=== PATIENT | female | born 1990 | race Caucasian/White ===

== ENCOUNTER 2016-04-07 12:27 | Inpatient (IN) | payer OTHER ==
[~2016-04-07] VITALS: Ht 162.6 cm; Wt 103.0 kg
[2016-04-07] MEDS ORDERED: PRENATAL VITAMI1 TA2 PO (13:31)
[2016-04-07] MEDS ORDERED: OXYTOCIN 20 UNITS/LR PREMIX 1,000 ML IV SCH (13:33)
[2016-04-07] MEDS ORDERED: NOVOLIN N100 U/ML SUBQ (13:33)
[2016-04-07] MEDS ORDERED: NALBUPHINE 10 MG/ML AMP IVP PRN (13:35)
[2016-04-07] MEDS ORDERED: PROMETHAZINE 25 MG/ML VIAL IVP PRN (13:35)
[2016-04-07] MEDS ORDERED: CARBOPROST 250 MCG/ML AMP IM PRN (13:35)
[2016-04-07] MEDS ORDERED: METHYLERGONOVINE 0.2 MG/ML AMP IM SCH (13:35)
[2016-04-07] MEDS ORDERED: CLINDAMYCIN 900 MG/6 ML VIAL IV ONE ×2 (13:56→21:55)
[2016-04-07] MEDS ORDERED: CLINDAMYCIN 900 MG in DEXTROSE 5% 100 ML IV SCH ×2 (13:56→21:00)
[2016-04-07] MEDS ORDERED: OXYTOCIN 10 UNITS/ML VIAL IM SCH (14:00)
[2016-04-07] MEDS: LACTATED RINGERS 1,000 ML IV SCH (14:25)
[2016-04-07] MEDS ORDERED: MISOPROSTOL 25 MCG TAB VG SCH (15:20)
[2016-04-07] MEDS ORDERED: MISOPROSTOL 25 MCG TAB ONE ×2 (18:04→22:41)
[2016-04-07] MEDS ORDERED: INSULIN HUMAN NPH 100 UNITS/ML VIAL SUBQ SCH (21:30)
[2016-04-08] MEDS ORDERED: OXYTOCIN 20 UNITS/LR PREMIX 1,000 ML IV ONE (01:09)
[2016-04-08] MEDS ORDERED: NALBUPHINE HYDROCHLORIDE 10 MG/ML VIAL ONE ×3 (02:01→09:31)
[2016-04-08] MEDS ORDERED: PROMETHAZINE 25 MG/ML VIAL ONE ×3 (02:01→09:31)
[2016-04-08] MEDS ORDERED: CLINDAMYCIN 900 MG/6 ML VIAL IV ONE ×2 (05:30→13:57)
[2016-04-08] MEDS: CLINDAMYCIN 900 MG in DEXTROSE 5% 100 ML IV SCH ×2 (05:40→14:15)
--- NOTE | 2016-04-08 07:58 | NUR ---
PATIENT HAS BEEN SCREENED AND CATEGORIZED LOW NUTRITION RISK. PATIENT WILL BE SEEN WITHIN 7 DAYS OF ADMISSION. 04/14/[address]
[2016-04-08] MEDS: LACTATED RINGERS 1,000 ML IV SCH ×3 (07:59→18:42)
[2016-04-08] MEDS ORDERED: ROPIVACAINE 0.2%/NS PREMIX 250 ML EPI ONE (09:54)
[2016-04-08] MEDS ORDERED: ROPIVACAINE 0.2%/NS PREMIX 250 ML EPI SCH (10:25)
[2016-04-08] MEDS ORDERED: TERBUTALINE 1 MG/ML VIAL SUBQ ONE (11:38)
[2016-04-08] MEDS ORDERED: OXYTOCIN 10 UNITS/ML VIAL IM SCH (21:00)
[2016-04-08] MEDS ORDERED: OXYTOCIN 10 UNITS/ML VIAL ONE (22:51)
[2016-04-09] MEDS ORDERED: HYDROcodone/APAP 5/325 MG 1 TAB TAB PO PRN (01:10)
[2016-04-09] MEDS ORDERED: METHYLERGONOVINE 0.2 MG/ML AMP IM PRN (01:10)
[2016-04-09] MEDS ORDERED: TEMAZEPAM 15 MG CAP PO PRN (01:10)
[2016-04-09] MEDS ORDERED: MEASLES, MUMPS, AND RUBELLA 1 VIAL SQVAC PRN (01:10)
[2016-04-09] MEDS ORDERED: oxyCODONE/APAP 5/325 MG 1 TAB TAB PO PRN (01:10)
[2016-04-09] MEDS ORDERED: OXYTOCIN 10 UNITS/ML VIAL IM PRN (01:10)
[2016-04-09] MEDS ORDERED: IBUPROFEN 800 MG TAB PO PRN (01:10)
[2016-04-09] MEDS ORDERED: DOCUSATE SOD/SENNA 50/8.6 MG 1 TAB PO SCH (21:00)
[2016-04-09] MEDS ORDERED: INFLUENZA VIRUS VACCINE QUAD 0.5 ML SYR IMVAC SCH (22:20)
[2016-04-10] MEDS ORDERED: MOTRIN400 MG PO (10:13)
[2016-04-10] MEDS ORDERED: DOCUSATE SOD/SENNA 50/8.6 MG 1 TAB PO SCH (21:00)
== END 2016-04-10 13:35 | disposition home or self-care (01) | DRG 560 ==
LOC: OBSVTOIN 12:27 → MLD 12:27 → MFCC 04-09 13:41
PROVIDERS: ADMIT Obstetrics & Gynecology; ATTEND Obstetrics & Gynecology
PROC: 10E0XZZ Delivery of Products of Conception, External Approach (ICD-10-PCS; principal; 2016-04-08)
PROC: 10907ZC Drainage of Amniotic Fluid, Therapeutic from Products of Conception, Via Natural or Artificial Opening (ICD-10-PCS; 2016-04-08)
PROC: 3E0234Z Introduction of Serum, Toxoid and Vaccine into Muscle, Percutaneous Approach (ICD-10-PCS; 2016-04-10)
DX: O24.429 Gestational diabetes mellitus in childbirth, unspecified control (principal); Z68.43 Body mass index [BMI] 50.0-59.9, adult; O99.824 Streptococcus B carrier state complicating childbirth; O76 Abnormality in fetal heart rate and rhythm complicating labor and delivery; O99.214 Obesity complicating childbirth; E66.9 Obesity, unspecified; Z3A.39 39 weeks gestation of pregnancy; Z37.0 Single live birth; Z23 Encounter for immunization

== ENCOUNTER 2017-05-17 09:32 | Emergency (ER) | payer OTHER ==
[~2017-05-17] VITALS: Ht 167.6 cm; Wt 148.3 kg
[~2017-05-17 09:32] MED LIST: IBUP-1842 PO; NOVN SUBQ; PREN-546 PO
[2017-05-17 09:37] VITALS: BP 135/70
--- NOTE | 2017-05-17 10:06 | NUR ---
26F BIB SELF C/O GENERALIZED BODY RASH "ALL OVER" X 2 DAYS; ERTHYEMA NOTED TO SITES AT THIS TIME; PT STATES NO PAIN AT THIS TIME, BUT STATES " IT'S JUST ITCHY"; PT STATES " MY THROAT ITCHES", BUT STATES NO SHORTNESS OF BREATH, OR DIFFUCULTY BREATHING AT THIS TIME; BL LUNG SOUNDS CLEAR, RR EVEN/UNLABORED, EQUAL RISE/FALL OF CHEST NOTED AT THIS TIME; PT SPEAKING IN FULL, COMPLETE SENTENCES AT THIS TIME; PT AA&OX4, STATES NO N/V/D AT THIS TIME; SKIN IS WARM/DRY/INTACT; PT STATES NO RECENT CHANGES IN SOAP OR DETERGENT; PT STATES INSERTED IUD ON 05/11/17 AND WENT TO A RANCH 2 DAYS AGO, AND "LEMON TREES WERE BURNING", BUT UNSURE OF WHERE RASH CAME FROM; PT RESTING IN BED WITH HOB ELEVATED AND IN LOWEST POSITION; POSITIONED FOR COMFORT; ER MD MADE AWARE OF STATUS. WILL CONTINUE TO MONITOR.
[2017-05-17 11:04] VITALS: BP 127/73
--- NOTE | 2017-05-17 11:04 | NUR ---
Patient discharged with v/s stable. Written and verbal after care instructions given and explained. Patient alert, oriented and verbalized understanding of instructions. Ambulatory with steady gait. All questions addressed prior to discharge. ID band removed. Patient advised to follow up with PMD. Rx of prednisone 20mg given. Patient educated on indication of medication including possible reaction and side effects. Opportunity to ask questions provided and answered.
== END 2017-05-17 11:04 | disposition home or self-care (01) ==
LOC: MED 09:32
DX: R21 Rash and other nonspecific skin eruption (principal); F17.210 Nicotine dependence, cigarettes, uncomplicated
CPT/HCPCS: 99283

== ENCOUNTER 2017-09-15 11:30 | Emergency (ER) | payer OTHER ==
[~2017-09-15] VITALS: Ht 167.6 cm; Wt 158.8 kg
[2017-09-15 11:32] VITALS: BP 135/76
[2017-09-15] MEDS ORDERED: BACITRACIN OINT 500 UNITS/GM PKT TP ONE (12:02)
[2017-09-15 12:29] VITALS: BP 150/76
== END 2017-09-15 12:29 | disposition home or self-care (01) ==
LOC: MED 11:30
DX: B35.3 Tinea pedis (principal); Z79.899 Other long term (current) drug therapy; Z79.4 Long term (current) use of insulin
CPT/HCPCS: 99283

== ENCOUNTER 2017-09-22 11:17 | Emergency (ER) | payer OTHER ==
[~2017-09-22] VITALS: Ht 167.6 cm; Wt 158.8 kg
[2017-09-22 11:28] VITALS: BP 157/95
--- NOTE | 2017-09-22 11:34 | NUR ---
PT AMBULATES TO BED 3 Addendum: 09/22/17 at 1136 by [email or web address] REPORT GIVEN TO KEYANNA NEWTON
--- NOTE | 2017-09-22 11:40 | NUR ---
27 YO F BIB SELF W/ C/O BILATERAL EYELID SWELLING & ITCHING X YESTERDAY.DENIES VISION CHANGE. EYE APPEARS W/O REDNESS OR DRAINAGE NOTABLE. AAOX4. GCS 15. CMS INTACT. RR EVEN AND UNLABORED. LUNGS CLEAR. ER MD NOTIFIED. PT NEEDS MET. SAFETY PRECAUTIONS IN PLACE, WILL CONITNUE TO MONITOR.
[2017-09-22 12:10] VITALS: BP 134/87
--- NOTE | 2017-09-22 12:10 | NUR ---
Patient discharged with v/s stable. Written and verbal after care instructions given and explained. Patient alert, oriented and verbalized understanding of instructions. Ambulatory with steady gait. All questions addressed prior to discharge. ID band removed. Patient advised to follow up with PMD. Rx of CLARITIN AND NAPHCONFORTE given. Patient educated on indication of medication including possible reaction and side effects. Opportunity to ask questions provided and answered.
== END 2017-09-22 12:10 | disposition home or self-care (01) ==
LOC: MED 11:17
DX: H10.13 Acute atopic conjunctivitis, bilateral (principal); Z79.899 Other long term (current) drug therapy
CPT/HCPCS: 99282

== ENCOUNTER 2017-10-13 19:41 | Emergency (ER) | payer OTHER ==
[~2017-10-13] VITALS: Ht 167.6 cm; Wt 163.9 kg
[2017-10-13 19:45] VITALS: BP 137/79
--- NOTE | 2017-10-13 19:50 | NUR ---
PT ASSISTED TO LOBBY
--- NOTE | 2017-10-13 20:10 | NUR ---
PATIENT LEFT WITHOUT BEING SEEN BY DR. FONTANEZ. NO FURTHER CARE PROVIDED FOR PATIENT.
== END 2017-10-13 20:08 | disposition left against medical advice (07) ==
LOC: MED 19:41
DX: M79.1 Myalgia (principal); Z53.21 Procedure and treatment not carried out due to patient leaving prior to being seen by health care provider

== ENCOUNTER 2020-11-28 13:27 | Emergency (ER) | payer OTHER ==
[~2020-11-28] VITALS: Ht 167.6 cm; Wt 135.6 kg
[2020-11-28 13:39] VITALS: BP 134/75
--- NOTE | 2020-11-28 13:49 | NUR ---
PT AMB TO BED 1.
--- NOTE | 2020-11-28 13:56 | NUR ---
PATIENT PRESENTS TO ED WITH VAGINAL BLEEDING, PATIENT STATES SHE IS ON HER MENSTRUAL PERIOD BUT VAGINAL BLEEDING IS MUCH HEAVIER THAN USUAL . PT STATES SHE IS SOAKING THROUGH HER TAMPON/PAD/ AND CLOTHES . ALSO REPORTS SHE IS HAVING MENSTRUAL CRAMPS. DENIES LIGHTHEADEDNESS/ DIZZINESS. STATES SHE RECEIVED THE GASTRIC SLEEVE SURGERY TWO MONTHS AGO AND DROPPED ABOUT 50 LBS DENIES N/V/D; SKIN IS PINK/WARM/DRY; AAOX4 WITH EVEN AND STEADY GAIT; LUNGS CLEAR BL; HR EVEN AND REGULAR; PT DENIES ANY FEVER, CP, SOB, OR COUGH AT THIS TIME; PATIENT STATES PAIN OF 5/10 AT THIS TIME; VSS; PATIENT POSITIONED FOR COMFORT; HOB ELEVATED; BEDRAILS UP X2; BED DOWN. ER MD MADE AWARE OF PT STATUS.
--- NOTE | 2020-11-28 14:19 | NUR ---
pt ambulated to restroom for UA
--- NOTE | 2020-11-28 14:19 | NUR ---
Dr. Yoon is evaluating patient at bedside
[2020-11-28] MEDS ORDERED: MEDR10TA PO (14:30)
[2020-11-28] MEDS ORDERED: CIPR500T4 PO (14:30)
[2020-11-28 14:45] LABS: BASOPHILS # (AUTO) 0.1 K/uL (0.00-0.22); BASOPHILS % (AUTO) 0.7 % (0.0-2.0); EOSINOPHILS # (AUTO) 0.3 K/uL (0-0.4); EOSINOPHILS % (AUTO) 4.1 % (0.0-4.0); HEMATOCRIT 38.3 % (36-48); HEMOGLOBIN 12.9 g/dL (12.0-16.0); LYMPHOCYTES # (AUTO) 1.7 K/uL (2.5-16.5); LYMPHOCYTES % (AUTO) 21.5 % (20.5-51.1); MEAN CORPUSCULAR HEMOGLOBIN 30 pg (27-31); MEAN CORPUSCULAR HGB CONC 34 g/dL (33-37); MEAN CORPUSCULAR VOLUME 88.9 fL (80-94); MONOCYTES # (AUTO) 0.4 K/uL (0.8-1.0); MONOCYTES % (AUTO) 5.5 % (1.7-9.3); NEUTROPHILS # (AUTO) 5.4 K/uL (1.8-7.7); NEUTROPHILS % (AUTO) 68.2 % (42.2-75.2); PLATELET COUNT (AUTO) 199 K/uL (140-450); RED BLOOD CELL COUNT(AUTO) 4.31 MIL/uL (4.20-5.40); RED CELL DISTRIBUTION WIDTH 15.6 % (11.6-13.7)
[2020-11-28 15:10] VITALS: BP 137/72
--- NOTE | 2020-11-28 15:24 | NUR ---
Patient discharged with v/s stable. Written and verbal after care instructions given and explained. Patient alert, oriented and verbalized understanding of instructions. Ambulatory with steady gait. All questions addressed prior to discharge. ID band removed. Patient advised to follow up with PMD. Rx of Provera, Cipro given. Patient educated on indication of medication including possible reaction and side effects. Opportunity to ask questions provided and answered.
== END 2020-11-28 15:24 | disposition home or self-care (01) ==
LOC: MED 13:27
DX: N93.8 Other specified abnormal uterine and vaginal bleeding (principal); N39.0 Urinary tract infection, site not specified; Z79.899 Other long term (current) drug therapy; Z98.84 Bariatric surgery status
CPT/HCPCS: 36415; 81002; 81025; 85025; 99283

== ENCOUNTER 2023-02-14 03:04 | Emergency (ER) | payer OTHER ==
[~2023-02-14] VITALS: Ht 167.6 cm; Wt 104.8 kg
[~2023-02-14 03:04] MED LIST changes: +CIPR500T4 PO; +MEDR10TA PO
[2023-02-14 03:19] VITALS: BP 102/57; PULSE 78; RESP 20; TEMP 97.4; O2SAT 99
[2023-02-14 04:05] LABS: APPEARANCE,URINE SL CLOUDY (CLEAR); BILIRUBIN,URINE NEGATIVE (NEGATIVE); BLOOD, URINE 3+ (NEGATIVE); COLOR,URINE YELLOW (YELLOW); LEUKOCYTE ESTERASE ,URINE 1+ (NEGATIVE); NITRITE, URINE NEGATIVE (NEGATIVE); PH,URINE 6.5 (5.0-9.0); PROTEIN,URINE 1+ (NEGATIVE); UGLUCOSE NEGATIVE (NEGATIVE)
[2023-02-14 04:28] LABS: BACTERIA,URINE 1+ /HPF (None Seen); RBC,URINE 50-80 /HPF (0-5); WBC,URINE >25 (MANY) /HPF (0-5)
[2023-02-14 04:29] LABS: SQUAMOUS EPITHELIAL CELL,UR 4-10 (MOD) /LPF (0-3 (FEW))
[2023-02-14] MEDS ORDERED: cephALEXin 500 MG CAP PO ONE (06:15)
[2023-02-14] MEDS ORDERED: CEPH-588 PO (06:49)
[2023-02-14 06:56] VITALS: BP 102/57; PULSE 78; RESP 20; TEMP 97.4; O2SAT 99
[2023-02-14 07:18] LABS: BASOPHILS % (AUTO) 0.3 % (0.0-2.0); EOSINOPHILS # (AUTO) 0.2 K/uL (0-0.4); EOSINOPHILS % (AUTO) 1.6 % (0.0-4.0); HEMATOCRIT 28.2 % (36-48); HEMOGLOBIN 9.4 g/dL (12.0-16.0); LYMPHOCYTES # (AUTO) 1.2 K/uL (2.5-16.5); LYMPHOCYTES % (AUTO) 10.7 % (20.5-51.1); MEAN CORPUSCULAR HEMOGLOBIN 25 pg (27-31); MEAN CORPUSCULAR HGB CONC 33 g/dL (33-37); MEAN CORPUSCULAR VOLUME 74.1 fL (80-94); MONOCYTES # (AUTO) 0.4 K/uL (0.8-1.0); MONOCYTES % (AUTO) 3.7 % (1.7-9.3); NEUTROPHILS % (AUTO) 83.7 % (42.2-75.2); PLATELET COUNT (AUTO) 233 K/uL (140-450); RED CELL DISTRIBUTION WIDTH 15.8 % (11.6-13.7); WHITE BLOOD COUNT (AUTO) 10.7 K/uL (4.8-10.8)
[2023-02-14 07:34] LABS: ALBUMIN 2.6 g/dL (3.4-5.0); ANION GAP 11.9 (8-16); CALCIUM 8.4 mg/dL (8.5-10.1); CARBON DIOXIDE 25.8 mmol/L (21-32); CREATININE 0.5 mg/dL (0.6-1.3); POTASSIUM 3.7 mmol/L (3.5-5.1); TOTAL BILIRUBIN 0.3 mg/dL (0.0-1.0); TOTAL PROTEIN, SERUM 6.8 g/dL (6.4-8.2)
== END 2023-02-14 06:56 | disposition home or self-care (01) ==
LOC: MED 03:04
DX: O23.42 Unspecified infection of urinary tract in pregnancy, second trimester (principal); Z3A.16 16 weeks gestation of pregnancy; Z79.899 Other long term (current) drug therapy; Z79.2 Long term (current) use of antibiotics; Z79.1 Long term (current) use of non-steroidal anti-inflammatories (NSAID)
CPT/HCPCS: 36415; 76801; 80053; 81001; 81025; 83690; 84702; 85025; 86901; 87086; 99284